=== PATIENT | male | born 1955 | race Caucasian/White ===

== ENCOUNTER 2021-11-17 08:30 | Day surgery (SDC) | payer MEDICARE, OTHER ==
[2021-11-16 08:58] VITALS: BMI 28.7
[~2021-11-17 08:30] MED LIST: LACTATED RINGERS 1,000 ML IV SCH
[2021-11-17 09:33] VITALS: TEMP 97.2
[2021-11-17] MEDS ORDERED: PROPOFOL 10 MG/ML 20 ML VIAL IV ONE (10:09)
--- NOTE | 2021-11-17 10:25 | P.PCN ---
Date of Procedure: 11/17/21 Procedure(s) Performed: BRIEF HISTORY: Patient is a 66-year-old pleasant male male scheduled for an elective colonoscopy as a part of value should prior history of colon polyps. Last colonoscopy was 3 years ago. PROCEDURE PERFORMED: Colonoscopy with biopsy. PREOPERATIVE DIAGNOSIS: History of colon polyps. IV sedation per Anesthesia. PROCEDURE: After informed consent was obtained, the patient, was brought into the endoscopy unit. IV sedation was administered by Anesthesia under continuous monitoring. Digital rectal examination was normal. Initially the Olympus CF-160 flexible video colonoscope was then inserted in the rectum, gradually advanced into the cecum without any difficulty. Careful examination was performed as the scope was gradually being withdrawn. Ileocecal valve and the appendiceal orifice were visualized and appeared normal. Prep was excellent. Mucosa of the cecum, ascending colon, transverse colon, descending colon, sigmoid colon, appeared normal. In the sigmoid colon there was a 3 mm sessile small polyp that was removed by cold biopsy. Scattered sigmoid diverticulosis seen and rectum appeared normal. Retroflexion was performed in the rectum and no lesions were seen. The patient tolerated the procedure well. IMPRESSION: 3 mm sigmoid colon polyp status post cold biopsy Scattered early sigmoid diverticula RECOMMENDATIONS: Findings of this examination were discussed with the patient well as his family.. There with the biopsy results adenoma he can have a repeat colonoscopy in 5 years
[2021-11-17 10:31] VITALS: RESP 16
[2021-11-17 10:47] VITALS: BP 115/71; PULSE 58
== END 2021-11-17 11:14 | disposition home or self-care (01) ==
LOC: ORWHC2ENDO 08:30
PROVIDERS: ATTEND Internal Medicine Gastroenterology
DX: Z12.11 Encounter for screening for malignant neoplasm of colon (principal); D12.5 Benign neoplasm of sigmoid colon; K57.30 Diverticulosis of large intestine without perforation or abscess without bleeding; E78.5 Hyperlipidemia, unspecified; K21.9 Gastro-esophageal reflux disease without esophagitis; E07.9 Disorder of thyroid, unspecified; Z79.890 Hormone replacement therapy; Z79.899 Other long term (current) drug therapy; Z86.010 Personal history of colon polyps
CPT/HCPCS: 88305; 45380; J2704